=== PATIENT | male | born 1965 | race African-American/Black ===

== ENCOUNTER 2025-04-04 20:53 | Emergency (ER) | payer OTHER ==
[~2025-04-04 20:53] MED LIST: Iopamidol 300 61% 100 ML VIAL FS ONE
[2025-04-04 21:37] LABS: ALT (SGPT) Less than 7 U/L (Less than 45); AST (SGOT) 25 U/L (11-34); Albumin 3.2 g/dL (3.1-4.5); Alkaline Phosphatase 49 U/L (40-110); Anion Gap 18 mmol/L (10-20); BUN (Urea Nitrogen) 29 mg/dL (8.4-25.7); Bilirubin, Total 0.6 mg/dL (0.3-1.2); CK (CPK) 165 U/L (30-200); Calc. Creatinine Clearance 0 mL/min (70-130); Calcium 8.9 mg/dL (7.8-10.44); Carbon Dioxide 20 mmol/L (22-29); Chloride 104 mmol/L (98-107); Globulin 4.0 g/dL (2.4-3.5); Glucose 200 mg/dL (70-105); Magnesium 1.5 mg/dL (1.6-2.6); Potassium 3.9 mmol/L (3.5-5.1); Sodium 138 mmol/L (136-145)
[2025-04-04 21:48] LABS: Hematocrit 42.2 % (38.8-50.0); Hemoglobin 14.2 g/dL (13.5-17.5); Mean Corpuscular Hemoglobin 30.8 pg (27.0-33.0); Mean Corpuscular Volume 91.5 fL (81.2-95.1); Platelet Count 153 10x3/uL (150-450); Red Blood Cell (RBC) Count 4.61 10x6/uL (4.32-5.72); White Blood Cell (WBC) Count 23.01 10x3/uL (3.5-10.5)
[2025-04-04 21:54] LABS: MDiff Complete? YES; Platelet Adequacy Comment Appears Adequate; RBC Morphology Within Normal Limits
[2025-04-04] MEDS ORDERED: Vancomycin 2.5 GM, Admixture Fee 1 EACH in Sodium Chloride 0.9% 500 ML IVPB SCH (22:00)
[2025-04-04 22:19] LABS: Actual Bicarbonate (HCO3v) 23.0 mEq/L (22-28); Analyzer IN Cardio CS ER; Base Excess -2.8 mEq/L (-2 - +2); Calcium, Ionized (venous) 1.09 mmol/L (1.16-1.32); Chloride (VBG) 100 mmol/L (98-106); Hematocrit-VBG 41 % (42.0-52.0); Hemoglobin (Hb) 13.8 g/dL (13.1-17.2); Potassium (VBG) 4.04 mmol/L (3.70-5.30); Puncture Site Other Site; RapidComm Collect By Lab; Sodium 135 mmol/L (133-146)
[2025-04-04] MEDS ORDERED: Cefepime 2 GM VIAL ONE (22:19)
[2025-04-05] MEDS ORDERED: Acetaminophen 500 MG TAB ONE (01:11)
[2025-04-05] MEDS ORDERED: Ketorolac Tromethamine 30 MG (1 mL) VIAL ONE (01:11)
== END 2025-04-05 03:28 | disposition short-term general hospital (02) ==
LOC: CSHERS 20:53
DX: A41.9 Sepsis, unspecified organism (principal); R65.20 Severe sepsis without septic shock; L03.116 Cellulitis of left lower limb; I10 Essential (primary) hypertension; E11.9 Type 2 diabetes mellitus without complications; E78.5 Hyperlipidemia, unspecified; Z79.4 Long term (current) use of insulin; Z79.899 Other long term (current) drug therapy; Z79.84 Long term (current) use of oral hypoglycemic drugs
CPT/HCPCS: 36415; 70450; 71045; 80053; 82550; 82805; 83605; 83735; 85025; 87040; 87428; 93005; 96365; 96366; 96375; J0692; J1885; J2060; J2270; J3373; J7030